=== PATIENT | female | born 2000 | race Caucasian/White ===

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

== ENCOUNTER 2021-01-23 22:26 | Emergency (ER) | payer OTHER ==
--- NOTE | 2021-01-23 22:50 | NUR ---
CALLED TO BE TRIAGE NO RESPONSE PATIENT LEFT WITHOUT BEING SEEN BY DR. IRELAND. NO FURTHER CARE PROVIDED FOR PATIENT.
--- NOTE | 2021-01-23 22:53 | NUR ---
PER ADMITTING, PT LEFT WITHOUT BEING SEEN.
--- NOTE | 2021-01-23 23:00 | NUR ---
CALLED FOR THE SECOND TIME NO RESPONSE
--- NOTE | 2021-01-23 23:10 | NUR ---
CALLED FOR THE THIRD TIME NO RESPONSE
== END 2021-01-23 22:50 | disposition left against medical advice (07) ==
LOC: MED 22:26
DX: Z53.21 Procedure and treatment not carried out due to patient leaving prior to being seen by health care provider (principal)

== ENCOUNTER 2021-02-23 01:58 | Emergency (ER) | payer OTHER ==
[~2021-02-23] VITALS: Ht 175.3 cm; Wt 77.1 kg
[2021-02-23 02:00] VITALS: BP 111/73
--- NOTE | 2021-02-23 02:00 | NUR ---
TO BED AMBULATORY
[2021-02-23] MEDS ORDERED: HYDROcodone/APAP 5/325 MG 1 TAB TAB PO ONE (02:25)
--- NOTE | 2021-02-23 03:07 | NUR ---
CARE TRANSFERRED TO [facility].
--- NOTE | 2021-02-23 04:00 | NUR ---
RESULTS BACK AND NOTED BY ERMD AND FOR D/C
[2021-02-23 04:20] VITALS: BP 119/80
--- NOTE | 2021-02-23 04:20 | NUR ---
Patient discharged with v/s stable. Written and verbal after care instructions given and explained. Patient verbalized understanding. Ambulatory with steady gait. All questions addressed prior to discharge. Advised to follow up with PMD.
== END 2021-02-23 04:20 | disposition home or self-care (01) ==
LOC: MED 01:58
DX: S09.90XA Unspecified injury of head, initial encounter (principal); W19.XXXA Unspecified fall, initial encounter; Y93.89 Activity, other specified; Y92.89 Other specified places as the place of occurrence of the external cause; Y99.8 Other external cause status
CPT/HCPCS: 70450; 99284

== ENCOUNTER 2022-11-15 22:26 | Emergency (ER) | payer OTHER ==
[~2022-11-15] VITALS: Ht 172.7 cm; Wt 72.1 kg
[2022-11-15 23:22] VITALS: BP 100/64
[2022-11-16 00:01] LABS: BASOPHILS % (AUTO) 0.3 % (0.0-2.0); EOSINOPHILS # (AUTO) 0.2 K/uL (0-0.4); EOSINOPHILS % (AUTO) 2.4 % (0.0-4.0); LYMPHOCYTES # (AUTO) 2.1 K/uL (2.5-16.5); LYMPHOCYTES % (AUTO) 30.6 % (20.5-51.1); MEAN CORPUSCULAR HEMOGLOBIN 28 pg (27-31); MEAN CORPUSCULAR HGB CONC 33 g/dL (33-37); MEAN CORPUSCULAR VOLUME 85.8 fL (80-94); MONOCYTES # (AUTO) 0.6 K/uL (0.8-1.0); MONOCYTES % (AUTO) 8.7 % (1.7-9.3); PLATELET COUNT (AUTO) 163 K/uL (140-450); RED BLOOD CELL COUNT(AUTO) 4.31 MIL/uL (4.20-5.40); RED CELL DISTRIBUTION WIDTH 14.2 % (11.6-13.7); WHITE BLOOD COUNT (AUTO) 6.8 K/uL (4.8-10.8)
[2022-11-16 00:21] LABS: ALBUMIN 3.5 g/dL (3.4-5.0); ANION GAP 8.6 (8-16); CARBON DIOXIDE 31.2 mmol/L (21-32); CREATININE 0.6 mg/dL (0.6-1.3); POTASSIUM 3.8 mmol/L (3.5-5.1); TOTAL BILIRUBIN 0.2 mg/dL (0.0-1.0)
--- NOTE | 2022-11-16 01:07 | NUR ---
PT TAKEN TO ULTRASOUND VIA W/C
--- NOTE | 2022-11-16 01:23 | NUR ---
URINE OBTAINED AND SENT TO LAB
[2022-11-16 01:26] LABS: APPEARANCE,URINE CLEAR (CLEAR); BILIRUBIN,URINE NEGATIVE (NEGATIVE); BLOOD, URINE NEGATIVE (NEGATIVE); COLOR,URINE YELLOW (YELLOW); LEUKOCYTE ESTERASE ,URINE NEGATIVE (NEGATIVE); NITRITE, URINE NEGATIVE (NEGATIVE); UGLUCOSE NEGATIVE (NEGATIVE)
[2022-11-16] MEDS ORDERED: FAMO-92 PO (02:12)
[2022-11-16 02:15] VITALS: BP 100/64
--- NOTE | 2022-11-16 02:15 | NUR ---
Patient discharged with v/s stable. Written and verbal after care instructions given and explained. Patient alert, oriented and verbalized understanding of instructions. Ambulatory with steady gait. All questions addressed prior to discharge. ID band removed. Patient advised to follow up with PMD. Rx of FAMOTIDINE given. Patient educated on indication of medication including possible reaction and side effects. Opportunity to ask questions provided and answered. DX: GASTRITIS, ADULT
== END 2022-11-16 02:15 | disposition home or self-care (01) ==
LOC: MED 22:26
DX: K29.70 Gastritis, unspecified, without bleeding (principal); Z91.018 Allergy to other foods
CPT/HCPCS: 36415; 76705; 80053; 81003; 81025; 82150; 83690; 85025; 99284; Q0092

== ENCOUNTER 2023-02-23 18:09 | Emergency (ER) | payer OTHER ==
[~2023-02-23] VITALS: Ht 172.7 cm; Wt 73.5 kg
[~2023-02-23 18:09] MED LIST: FAMO-92 PO
[2023-02-23 18:20] VITALS: BP 105/56; PULSE 82; RESP 20; TEMP 97.6; O2SAT 99
== END 2023-02-23 20:20 | disposition left against medical advice (07) ==
LOC: MED 18:09
DX: R10.13 Epigastric pain (principal); R53.1 Weakness; R07.9 Chest pain, unspecified; Z53.21 Procedure and treatment not carried out due to patient leaving prior to being seen by health care provider
CPT/HCPCS: 99281